=== PATIENT | female | born 1955 | race American Indian/Alaskan Native ===

== ENCOUNTER 2018-07-03 16:33 | Inpatient (IN) | payer MEDICARE ==
[2018-07-03 16:48] VITALS: BMI 48.4
[2018-07-03 17:53] LABS: BASO % 0.4 % (0.0-2.0); EOS # 0.4 K/uL (0.0-0.7); EOS % 5.1 % (0.0-4.0); HEMOGLOBIN 11.6 g/dL (11.0-16.0); LYMPH # 2.3 K/uL (1.0-4.3); MEAN CELL VOLUME 86.2 fL (81.0-99.0); MEAN CORPUSCULAR HEMOGLOBIN 27.2 pg (27.0-31.0); MEAN CORPUSCULAR HGB CONC 31.5 g/dL (33.0-37.0); MEAN PLATELET VOLUME 8.2 fL (7.2-11.7); MONO # 0.6 K/uL (0.0-0.8); MONO % 8.7 % (0.0-10.0); NEUT # 3.8 K/uL (1.8-7.0); NEUT % 53.8 % (50.0-75.0); NRBC % 0.1 % (0.0-2.0); RBC 4.26 Mil/uL (3.80-5.20); WHITE BLOOD COUNT 7.2 K/uL (4.8-10.8)
--- NOTE | 2018-07-03 18:02 | C.PDOC ---
History Of Present Illness 63 y/o female brought in by ambulance from home for evaluation of bilateral leg swelling and pain onset 2 days ago. She does admit to history of prior leg edema, though she is unsure of the cause. Otherwise patient denies any chest p ain, SOB, fever, chills, open wounds, or skin changes. She also denies any trauma or fall. Time Seen by Provider: 07/03/18 16:39 Chief Complaint (Nursing): Lower Extremity Problem/Injury History Per: Patient History/Exam Limitations: no limitations Onset/Duration Of Symptoms: Days (3) Current Symptoms Are (Timing): Still Present Past Medical History Reviewed: Historical Data, Nursing Documentation, Vital Signs Vital Signs: Last Vital Signs Temp 97.4 F L 07/03/18 16:48 Pulse 77 07/03/18 16:48 Resp 19 07/03/18 16:48 BP 121/76 07/03/18 16:48 Pulse Ox 97 07/03/18 16:48 - Medical History PMH: Diabetes (pre-diabetes), HTN, Hyperlipidemia, Hypothyroidism, Seizures Denies: Chronic Kidney Disease Other Surgeries: Right index finger surgery, Sarcoma removal - [facility] Procedures INJECT/INFUSE NEC (05/07/14) Family History: States: No Known Family Hx - Social History Hx Alcohol Use: No Hx Substance Use: No - Immunization History Hx Tetanus Toxoid Vaccination: No Hx Influenza Vaccination: No Hx Pneumococcal Vaccination: No Review Of Systems Constitutional: Negative for: Fever, Chills Cardiovascular: Negative for: Chest Pain Respiratory: Negative for: Shortness of Breath Musculoskeletal: Positive for: Leg Pain (and lower leg swelling, bilateral) Skin: Negative for: Lesions Neurological: Negative for: Weakness, Numbness Physical Exam - Physical Exam Appears: Non-toxic, No Acute Distress, Other (Morbidly obese) Skin: Warm, Dry, No Rash Head: Atraumatic, Normacephalic Eye(s): bilateral: Normal Inspection, PERRL, EOMI Neck: Normal ROM Chest: Symmetrical Cardiovascular: Rhythm Regular, No Murmur Respiratory: Normal Breath Sounds, No Accessory Muscle Use, Other (Speaking in full sentences) Gastrointestinal/Abdominal: Soft, No Tenderness, No Distention Extremity: Normal ROM, No Calf Tenderness, Capillary Refill (< 2 sec), Swelling (2+ pitting edema bilaterally), Other (No wounds or discharge) Pulses: Left Dorsalis Pedis: Normal, Right Dorsalis Pedis: Normal Neurological/Psych: Oriented x3, Normal Motor, Normal Sensation Gait: Steady ED Course And Treatment - Laboratory Results Result Diagrams: 07/03/18 17:49 07/03/18 18:55 O2 Sat by Pulse Oximetry: 97 (RA) Pulse Ox Interpretation: Normal - Radiology CXR: Read By Radiologist CXR Interpretation: Yes: No Acute Disease. No: Infiltrates, Cardiomegaly - Other Rad CXR X-Ray: Read By Radiologist Interpretation: Accession No. : [id number]. Patient Name / ID : JORGE HUMPHREY / [id number]. Exam Date : 07/03/2018 17:19:29 ( Approved ). Study Comment : Sex / Age : F / 63Y. Creator : Eliane Rollins MD. Dictator : Eliane Rollins MD. Keller Machine Operator : General Maintenance Helper : Eliane Rollins MD. Approver2 : Report Date : 07/03/2018 18:18:44. My Comment : . Date of service: 07/03/2018. PROCEDURE: CHEST RADIOGRAPH, 1 VIEW. HISTORY: SOB. COMPARISON: None available. FINDINGS: LUNGS: The lungs are well inflated and clear. PLEURA: No pneumothorax or pleural effusion. CARDIOVASCULAR: The heart is normal in size. No aortic atherosclerotic calcifications present. OSSEOUS STRUCTURES: Within normal limits for the patient's age. VISUALIZED UPPER ABDOMEN: Normal. OTHER FINDINGS: None. IMPRESSION: No active pulmonary disease. Progress Note: Blood work with cardiac enzymes ordered and reviewed. CXR obtained, shows no acute disease. Patient given PO Tylenol. Disposition - Disposition Forms: [employer] (Yakut) - Scribe Statement The provider has reviewed the documentation as recorded by the Huy Hughes Provider Attestation: All medical record entries made by the Scribe were at my direction and personally dictated by me. I have reviewed the chart and agree that the record accurately reflects my personal performance of the history, physical exam, medical decision making, and the department course for this patient. I have also personally directed, reviewed, and agree with the discharge instructions and disposition.
--- NOTE | 2018-07-03 18:22 | RAD ---
Date of service: 07/03/2018 PROCEDURE: CHEST RADIOGRAPH, 1 VIEW HISTORY: SOB COMPARISON: None available. FINDINGS: LUNGS: The lungs are well inflated and clear. PLEURA: No pneumothorax or pleural effusion. CARDIOVASCULAR: The heart is normal in size. No aortic atherosclerotic calcifications present. OSSEOUS STRUCTURES: Within normal limits for the patient's age. VISUALIZED UPPER ABDOMEN: Normal. OTHER FINDINGS: None. IMPRESSION: No active pulmonary disease.
[2018-07-03 19:20] LABS: ALB/GLOB RATIO 1.1 (1.0-2.1); ALBUMIN 3.7 g/dL (3.5-5.0); BLOOD UREA NITROGEN 18 mg/dL (7-17); CALCIUM 8.9 mg/dl (8.6-10.4); GFR NON-AFRICAN AMERICAN > 60
[2018-07-03 19:26] LABS: ALT/SGPT 15 U/L (9-52); AST/SGOT 23 U/L (14-36)
[2018-07-03 19:32] LABS: B-TYPE NATRIURETIC PEPTIDE 123 pg/mL (0-900); CK-MB 0.32 ng/mL (0.0-3.38)
--- NOTE | 2018-07-03 22:50 | CP.PCM.HP ---
Present on Admission - Present on Admission Any Indicators Present on Admission: No Past Patient History - Tetanus Immunizations Tetanus Immunization: Unknown - Past Social History Smoking Status: Never Smoked - CARDIAC Hx Hypertension: Yes - PULMONARY Hx Respiratory Disorders: No - NEUROLOGICAL Hx Seizures: Yes - HEENT Hx HEENT Problems: No - RENAL Hx Chronic Kidney Disease: No - ENDOCRINE/METABOLIC Hx Hypothyroidism: Yes - HEMATOLOGICAL/ONCOLOGICAL Hx Blood Disorders: No - INTEGUMENTARY Hx Dermatological Problems: No - MUSCULOSKELETAL/RHEUMATOLOGICAL Hx Musculoskeletal Disorders: No - GASTROINTESTINAL Hx Gastrointestinal Disorders: No - GENITOURINARY/GYNECOLOGICAL Hx Genitourinary Disorders: No - PSYCHIATRIC Hx Substance Use: No - SURGICAL HISTORY Hx Hysterectomy: Yes Hx Orthopedic Surgery: Yes (r index finger) Other/Comment: 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 R index finger sx as per pt/ - ANESTHESIA Hx Anesthesia: Yes Hx Anesthesia Reactions: No Hx Malignant Hyperthermia: No Meds Allergies/Adverse Reactions: Allergies Allergy/AdvReac Type Severity Reaction Status Date / Time No Known Allergies Allergy Verified 07/03/18 16:48 Results - Vital Signs Recent Vital Signs: Last Vital Signs Temp 97.9 F 07/03/18 22:10 Pulse 77 07/03/18 22:10 Resp 19 07/03/18 22:10 BP 109/53 L 07/03/18 22:10 Pulse Ox 99 07/03/18 22:10 - Labs Result Diagrams: 07/03/18 17:49 07/03/18 18:55 Labs: Laboratory Results - last 24 hr 07/03/18 07/03/18 17:49 18:55 WBC 7.2 RBC 4.26 Hgb 11.6 Hct 36.8 MCV 86.2 D MCH 27.2 MCHC 31.5 L RDW 15.0 H Plt Count 280 MPV 8.2 Neut % (Auto) 53.8 Lymph % (Auto) 32.0 Hendricks % (Auto) 8.7 Eos % (Auto) 5.1 H Baso % (Auto) 0.4 Neut # (Auto) 3.8 Lymph # (Auto) 2.3 Hendricks # (Auto) 0.6 Eos # (Auto) 0.4 Baso # (Auto) 0.0 Sodium 138 Potassium 4.2 Chloride 103 Carbon Dioxide 31 H Anion Gap 9 L BUN 18 H Creatinine 0.8 Est GFR ( Amer) > 60 Est GFR (Non-Af Amer) > 60 Random Glucose 92 Calcium 8.9 Total Bilirubin 0.5 AST 23 ALT 15 Alkaline Phosphatase 112 Total Creatine Kinase 48 CK-MB (Mass) 0.32 Troponin I < 0.0120 NT-Pro-B Natriuret Pep 123 Total Protein 7.1 Albumin 3.7 Globulin 3.4 Albumin/Globulin Ratio 1.1
--- NOTE | 2018-07-04 03:10 | HP ---
CHIEF COMPLAINT: Difficulty walking, leg swelling. HISTORY OF PRESENT ILLNESS: This is a 63-year-old female, well known to me with a history of morbid obesity, hypertension, hyperlipidemia and stroke. The patient has residual right-sided weakness, and she has been dependent on family members for activities of daily living. She has not been able to ambulate and she has been getting increasingly weak, inability to walk, generalized weakness, tingling and numbness. She denies any fevers, chills or rigors. She denies any nausea, vomiting or diarrhea. She denies any polyuria, polydipsia or polyphagia. She denies any history of hematuria or pyuria. She denies any sneezing, itchy eyes or itchy nose. There is no history of trauma, fall or loss of consciousness. There is no history of seizure-like activity. Her right side is weak . She had physiotherapy done on her previous hospitalization after the stroke, but no response. ALLERGIES: UNKNOWN ALLERGIES. CURRENT MEDICATIONS: Losartan, Lasix, Neurontin, aspirin, Mobic, Lipitor. PAST MEDICAL HISTORY: Hypertension, hyperlipidemia, stroke, arthritis. SOCIAL HISTORY: Nonsmoker, non-EtOH user. PHYSICAL EXAMINATION: GENERAL: An elderly female in no acute distress. VITAL SIGNS: Blood pressure 109/53, pulse 77, respiratory rate 20, temperature 97.9. SKIN: Senile turgor. No bruises. No purpura. No petechiae. No ecchymosis. HEENT: Atraumatic and normocephalic. Negative pallor. Negative jaundice. Extraocular movements are intact. NECK: Supple. No JVD. No lymph node. No thyromegaly. No carotid bruits. CHEST WALL: Bilateral symmetrical expansion. No . LUNGS: Clear. No rales. No rhonchi. CARDIOVASCULAR SYSTEM: S1 and S2, regular. No heave. No thrill. ABDOMEN: Soft and nontender. Bowel sounds are positive. RECTAL: No masses. No bleed. EXTREMITIES: No clubbing or cyanosis. +2 pitting edema. CENTRAL NERVOUS SYSTEM: Awake, alert, oriented x3. ASSESSMENT: 1. An old cerebrovascular accident with residual right-sided weakness with inability to thrive. 2. Hypertensive heart disease. 3. Osteoarthritis. 4. Hyperlipidemia. PLAN: Admit. Detailed orders are written. Seen and examined. Darwin Levine MD
--- NOTE | 2018-07-04 15:56 | CON ---
DATE: 07/04/2018 NEUROLOGY CONSULTATION CHIEF COMPLAINT: Generalized weakness. HISTORY OF PRESENT ILLNESS: This is a 63-year-old woman with a past medical history of morbid obesity, hypertension, hyperlipidemia, history of CVA with right-sided weakness, has been dependent on family members for activities of daily living. She has generalized weakness and lower extremity swelling, has some paresthesias. She is on gabapentin. She is very deconditioned for which she will require subacute rehab. Otherwise, she follows simple commands, recall after 5 minutes is 1/2, poor attention span, slow thought process. CURRENT MEDICATIONS: Losartan, Lasix, Neurontin, aspirin, Mobic, Lipitor. PAST MEDICAL HISTORY: Hypertension, hyperlipidemia, stroke, arthritis. SOCIAL HISTORY: No illicit drug abuse, smoking, or ETOH abuse. ALLERGIES: NO KNOWN DRUG ALLERGIES. REVIEW OF SYSTEMS: A 14-point review of systems negative except in the HPI. LABORATORY DATA: Sodium is 138, potassium 4.2, chloride 102, carbon dioxide 31, BUN of 18, creatinine 0.8, random glucose 92. PHYSICAL EXAMINATION: GENERAL: The patient is sitting up in no acute distress. VITAL SIGNS: Temperature 98.2, pulse rate of 67, blood pressure 107/71, respiratory rate 18, oxygen saturation 97% on room air. HEENT: Head is atraumatic, normocephalic. PERRLA. Extraocular movements intact. NECK: Supple. No JVD. No adenopathy noted. ABDOMEN: Obese, nontender, nondistended. Bowel sounds present. EXTREMITIES: No clubbing. Has 2+ pitting edema. Peripheral pulses are 2+ bilaterally. NEUROLOGIC: The patient is alert and oriented to person, place, and year. Recall after 5 minutes is 1/3. Poor attention span. Thought process clear. Cranial nerves II throughout XII intact. Motor examination has revealed right CVA and is very deconditioned. Sensory exam, decreased light touch to pinprick up to the calves bilaterally, decreased vibration of the toes. DTRs are 2+ throughout, 1 at both knees and ankles. Coordination: [id number] intact. Gait deferred for now. IMPRESSION: Generalized weakness, secondary to deconditioning , old cerebrovascular accident with severe right sided weakness with underlying failure to thrive, also has underlying osteoarthritis. At this time, recommend: 1. Aspirin 81 mg, Crestor 20 mg for stroke prevention. 2. Acute systolic blood pressure between 120s and 130s systolic and diastolics in the 80s. 3. Continue gabapentin 300 mg p.o. b.i.d. for neuropathic release. 4. Recommend subacute rehab for physical therapy, muscle strengthening, coordination, and balance exercises in a deconditioned state. Thank you for this consult. French Chavez MD
--- NOTE | 2018-07-04 20:58 | CP.PCM.PN ---
Subjective - Date & Time of Evaluation Date of Evaluation: 07/04/18 Time of Evaluation: 09:40 - Subjective Subjective: dictated Objective - Vital Signs/Intake and Output Vital Signs (last 24 hours): Temp Pulse Resp BP Pulse Ox 98.1 F 70 20 110/69 100 07/04/18 15:35 07/04/18 15:35 07/04/18 15:35 07/04/18 15:35 07/04/18 15:35 - Medications Medications: Current Medications Aspirin (Aspirin Chewable) 81 mg PO DAILY [facility] Furosemide (Lasix) 40 mg IVP Q12 [facility] Last Admin: 07/04/18 13:30 Dose: Not Given Gabapentin (Neurontin) 300 mg PO TID [facility] Last Admin: 07/04/18 17:31 Dose: 300 mg Heparin Sodium (Porcine) (Heparin) 5,000 units SC Q12 [facility] Last Admin: 07/04/18 10:04 Dose: 5,000 units Home Med (Meloxicam [Mobic]) 7.5 mg PO BID [facility] Losartan Potassium (Cozaar) 50 mg PO DAILY [facility] Last Admin: 07/04/18 10:04 Dose: 50 mg Potassium Chloride (K-Dur 20 Meq Er Tab) 20 meq PO DAILY [facility] Stop: 07/08/18 10:01 Rosuvastatin Calcium (Crestor) 20 mg PO HS [facility] Last Admin: 07/03/18 22:10 Dose: 20 mg - Labs Labs: 07/03/18 17:49 07/03/18 18:55
--- NOTE | 2018-07-05 00:41 | PN ---
DATE: 07/04/2018 SUBJECTIVE: The patient is with left-sided weakness. She is on physiotherapy and she is for subacute rehab and detention placement. No fevers. No chills. Decreased leg edema. PHYSICAL EXAMINATION: VITAL SIGNS: Blood pressure 110/69, pulse 70, respiratory rate 20, and temperature 98.1. LUNGS: Clear. CVS: S1 and S2, regular, S4 positive. ABDOMEN: Soft. ASSESSMENT: 1. History of prior cardiovascular accident with difficulty walking with left-sided weakness. 2. Hypertension. 3. Hypertensive heart disease. 4. Hyperlipidemia. PLAN: Physical therapy, rehab. Monitor the patient. Darwin Levine MD
[2018-07-05] MEDS ORDERED: Potassium Chloride 20 mEq ER Tab PO SCH (10:00)
--- NOTE | 2018-07-05 22:46 | CP.PCM.PN ---
Subjective - Date & Time of Evaluation Date of Evaluation: 07/05/18 Time of Evaluation: 20:40 - Subjective Subjective: dictated Objective - Vital Signs/Intake and Output Vital Signs (last 24 hours): Temp Pulse Resp BP Pulse Ox 98.2 F 64 20 98/54 L 98 07/05/18 15:49 07/05/18 15:49 07/05/18 15:49 07/05/18 15:49 07/05/18 15:49 Intake and Output: 07/05/18 07/06/18 18:59 06:59 Intake Total 320 Output Total 1100 Balance -780 - Medications Medications: Current Medications Aspirin (Aspirin Chewable) 81 mg PO DAILY [facility] Last Admin: 07/05/18 10:30 Dose: 81 mg Celecoxib (Celebrex) 200 mg PO DAILY [facility] Last Admin: 07/05/18 17:49 Dose: 200 mg Gabapentin (Neurontin) 300 mg PO TID [facility] Last Admin: 07/05/18 17:49 Dose: 300 mg Heparin Sodium (Porcine) (Heparin) 5,000 units SC Q12 [facility] Last Admin: 07/05/18 21:15 Dose: 5,000 units Losartan Potassium (Cozaar) 50 mg PO DAILY [facility] Last Admin: 07/05/18 10:29 Dose: 50 mg Rosuvastatin Calcium (Crestor) 20 mg PO HS [facility] Last Admin: 07/05/18 21:16 Dose: 20 mg - Labs Labs: 07/03/18 17:49 07/03/18 18:55
--- NOTE | 2018-07-06 02:28 | PN ---
DATE: 07/05/2018 SUBJECTIVE: The patient is feeling better. She still has left sided weakness. She is on physical therapy and she is for subacute rehab. She is afebrile. No shortness of breath. No nausea or vomiting. No chest pain. The patient is calm and quiet. PHYSICAL EXAMINATION: VITAL SIGNS: Blood pressure 98/51, pulse 64, respiratory rate 20, and temperature 98.2. LUNGS: Clear. CARDIOVASCULAR: S1 and S2, regular. ABDOMEN: Soft. ASSESSMENT: 1. Cerebrovascular accident with left-sided weakness. 2. Hypertension. 3. Hyperlipidemia. PLAN: Physical therapy. Rehab. Long-term assisted placement. Darwin Levine MD
[2018-07-06 08:22] LABS: HEMOGLOBIN 11.2 g/dL (11.0-16.0); MEAN CELL VOLUME 87.5 fL (81.0-99.0); MEAN CORPUSCULAR HEMOGLOBIN 28.5 pg (27.0-31.0); MEAN CORPUSCULAR HGB CONC 32.6 g/dL (33.0-37.0); MEAN PLATELET VOLUME 8.4 fL (7.2-11.7); RBC 3.94 Mil/uL (3.80-5.20); RED CELL DISTRIBUTION WIDTH 14.5 % (11.5-14.5); WHITE BLOOD COUNT 6.6 K/uL (4.8-10.8)
[2018-07-06 08:33] LABS: BLOOD UREA NITROGEN 23 mg/dL (7-17); CALCIUM 7.5 mg/dl (8.6-10.4); GFR NON-AFRICAN AMERICAN > 60
--- NOTE | 2018-07-06 09:54 | VASCLAB ---
Date of service: 07/04/2018 PROCEDURE: Lower Extremity Venous Duplex Exam. HISTORY: B/L leg edema and pain, r/o DVT PRIORS: None. TECHNIQUE: Bilateral common femoral, femoral, popliteal and posterior tibial, peroneal and great saphenous veins were evaluated. Flow was assessed with color Doppler, compressibility, assessment of phasic flow and augmentation response. Report prepared by Christian Blake, BS, RVT FINDINGS: RIGHT: 1. Common Femoral Vein: 1.1. Compressibility - Fully compressible: Thrombus - None : Flow - Phasic: Augmentation -Normal: Reflux - None. 2. Femoral Vein: 2.1. Compressibility - Fully compressible: Thrombus - None : Flow - Phasic: Augmentation -Normal: Reflux - None. 3. Popliteal Vein: 3.1. Compressibility - Fully compressible: Thrombus - None : Flow - Phasic: Augmentation -Normal: Reflux - None. 4. Posterior Tibial Vein: 4.1. Compressibility - Fully compressible: Thrombus - None: Flow - Phasic: Augmentation -Normal: Reflux - None. 5. Peroneal Vein: 5.1. Compressibility - Fully compressible: Thrombus - None: Flow - Phasic: Augmentation -Normal: Reflux - None. 6. Great Saphenous Vein: 6.1. Compressibility - Fully compressible: Thrombus - None: Flow - Phasic: Augmentation - Normal: Reflux - None. LEFT: 1. Common Femoral Vein: 1.1. Compressibility - Fully compressible: Thrombus - None: Flow - Phasic: Augmentation -Normal: Reflux - None. 2. Femoral Vein: 2.1. Compressibility - Fully compressible: Thrombus - None: Flow - Phasic: Augmentation -Normal: Reflux - None. 3. Popliteal Vein: 3.1. Compressibility - Fully compressible: Thrombus - None : Flow - Phasic: Augmentation -Normal: Reflux - None. 4. Posterior Tibial Vein: 4.1. Compressibility - Fully compressible: Thrombus - None: Flow - Phasic: Augmentation -Normal: Reflux - None. 5. Peroneal Vein: 5.1. Compressibility - Fully compressible: Thrombus - None: Flow - Phasic: Augmentation -Normal: Reflux - None. 6. Great Saphenous Vein: 6.1. Compressibility - Fully compressible: Thrombus - None: Flow - Phasic: Augmentation - Normal: Reflux - None. OTHER FINDINGS: Right: None significant. Left: None significant. IMPRESSION: Right: No evidence of deep or superficial vein thrombosis of the right lower extremity. Normal valve function noted of the right side. Left: No evidence of deep or superficial vein thrombosis of the left lower extremity. Normal valve function noted of the left side.
--- NOTE | 2018-07-06 20:50 | CP.PCM.PN ---
Subjective - Date & Time of Evaluation Date of Evaluation: 07/06/18 Time of Evaluation: 08:00 - Subjective Subjective: dictated Objective - Vital Signs/Intake and Output Vital Signs (last 24 hours): Temp Pulse Resp BP Pulse Ox 97.6 F 77 18 134/68 97 07/06/18 15:34 07/06/18 15:34 07/06/18 15:34 07/06/18 15:34 07/06/18 15:34 Intake and Output: 07/06/18 07/07/18 18:59 06:59 Intake Total 480 Output Total 400 Balance 80 - Medications Medications: Current Medications Aspirin (Aspirin Chewable) 81 mg PO DAILY [facility] Last Admin: 07/06/18 10:48 Dose: 81 mg Celecoxib (Celebrex) 200 mg PO DAILY [facility] Last Admin: 07/06/18 10:49 Dose: 200 mg Gabapentin (Neurontin) 300 mg PO TID [facility] Last Admin: 07/06/18 17:16 Dose: 300 mg Heparin Sodium (Porcine) (Heparin) 5,000 units SC Q12 [facility] Last Admin: 07/06/18 10:49 Dose: 5,000 units Losartan Potassium (Cozaar) 25 mg PO DAILY [facility] Last Admin: 07/06/18 10:49 Dose: 25 mg Rosuvastatin Calcium (Crestor) 20 mg PO HS [facility] Last Admin: 07/05/18 21:16 Dose: 20 mg - Labs Labs: 07/06/18 08:03 07/06/18 08:03
--- NOTE | 2018-07-07 01:11 | PN ---
DATE: 07/06/2018 SUBJECTIVE: The patient is feeling better. She is for subacute rehab. No fever. No chills. PHYSICAL EXAMINATION: VITAL SIGNS: Blood pressure 134/68, pulse 77, respiratory rate 18, temperature 97.6. LUNGS: Clear. CARDIOVASCULAR SYSTEM: S1 and S2 regular. ABDOMEN: Soft. ASSESSMENT: 1. Hypertensive heart disease. 2. Cerebrovascular accident with left-sided weakness. 3. Hyperlipidemia. PLAN: Physical therapy, rehab. Monitor the patient. Darwin Levine MD
--- NOTE | 2018-07-07 21:34 | CP.PCM.PN ---
Subjective - Date & Time of Evaluation Date of Evaluation: 07/07/18 Time of Evaluation: 08:20 - Subjective Subjective: dictated Objective - Vital Signs/Intake and Output Vital Signs (last 24 hours): Temp Pulse Resp BP Pulse Ox 97.8 F 70 20 106/65 99 07/07/18 15:15 07/07/18 15:15 07/07/18 15:15 07/07/18 15:15 07/07/18 15:15 - Medications Medications: Current Medications Aspirin (Aspirin Chewable) 81 mg PO DAILY [facility] Last Admin: 07/07/18 10:29 Dose: 81 mg Celecoxib (Celebrex) 200 mg PO DAILY [facility] Last Admin: 07/07/18 10:29 Dose: 200 mg Gabapentin (Neurontin) 300 mg PO TID [facility] Last Admin: 07/07/18 17:51 Dose: 300 mg Losartan Potassium (Cozaar) 25 mg PO DAILY [facility] Last Admin: 07/07/18 10:29 Dose: 25 mg Rosuvastatin Calcium (Crestor) 20 mg PO HS [facility] Last Admin: 07/06/18 21:44 Dose: 20 mg - Labs Labs: 07/06/18 08:03 07/06/18 08:03
--- NOTE | 2018-07-08 00:46 | PN ---
DATE: 07/07/2018 SUBJECTIVE: No changes. The patient is feeling well. Afebrile. No shortness of breath. No nausea or vomiting. PHYSICAL EXAMINATION: VITAL SIGNS: Blood pressure 106/65, pulse 70, respiratory rate 20, temperature 97.8. LUNGS: Clear. CARDIOVASCULAR: S1 and S2, regular. ABDOMEN: Soft. ASSESSMENT: 1. Cerebrovascular accident, old. 2. Hypertension. PLAN: Physical therapy. Rehab placement. Darwin Levine MD
--- NOTE | 2018-07-08 22:54 | CP.PCM.PN ---
Subjective - Date & Time of Evaluation Date of Evaluation: 07/08/18 Time of Evaluation: 08:30 - Subjective Subjective: dcitated Objective - Vital Signs/Intake and Output Vital Signs (last 24 hours): Temp Pulse Resp BP Pulse Ox 98 F 66 20 107/66 99 07/08/18 15:35 07/08/18 15:35 07/08/18 15:35 07/08/18 15:35 07/08/18 15:35 Intake and Output: 07/08/18 07/09/18 18:59 06:59 Output Total 800 Balance -800 - Medications Medications: Current Medications Aspirin (Aspirin Chewable) 81 mg PO DAILY [facility] Last Admin: 07/08/18 10:47 Dose: 81 mg Celecoxib (Celebrex) 200 mg PO DAILY [facility] Last Admin: 07/08/18 10:47 Dose: 200 mg Gabapentin (Neurontin) 300 mg PO TID [facility] Last Admin: 07/08/18 19:00 Dose: 300 mg Losartan Potassium (Cozaar) 25 mg PO DAILY [facility] Last Admin: 07/08/18 10:47 Dose: 25 mg Rosuvastatin Calcium (Crestor) 20 mg PO [facility] Last Admin: 07/08/18 21:00 Dose: 20 mg - Labs Labs: 07/06/18 08:03 07/06/18 08:03
--- NOTE | 2018-07-09 03:28 | PN ---
DATE: 07/08/2018 SUBJECTIVE: The patient is waiting for placement. No fever, no chills. PHYSICAL EXAMINATION: VITAL SIGNS: Blood pressure 107/66, pulse 66, respiratory rate 20, temperature 98. LUNGS: Clear. ABDOMEN: Soft. CENTRAL NERVOUS SYSTEM: Left-sided weakness. ASSESSMENT: 1. Cerebrovascular accident, old. 2. Hypotension. 3. Difficulty walking. PLAN: Physical therapy, LTAC placement, and rehab placement. Darwin Levine MD
--- NOTE | 2018-07-09 15:56 | CP.PCM.PN ---
Subjective - Date & Time of Evaluation Date of Evaluation: 07/09/18 Time of Evaluation: 15:55 Objective - Vital Signs/Intake and Output Vital Signs (last 24 hours): Temp Pulse Resp BP Pulse Ox 97.9 F 62 20 107/66 96 07/09/18 07:00 07/09/18 07:00 07/09/18 07:00 07/09/18 07:00 07/09/18 07:00 Intake and Output: 07/09/18 07/09/18 06:59 18:59 Intake Total 400 Output Total 800 500 Balance -800 -100 - Medications Medications: Current Medications Aspirin (Aspirin Chewable) 81 mg PO DAILY [facility] Last Admin: 07/09/18 09:15 Dose: 81 mg Celecoxib (Celebrex) 200 mg PO DAILY [facility] Last Admin: 07/09/18 09:15 Dose: 200 mg Gabapentin (Neurontin) 300 mg PO TID [facility] Last Admin: 07/09/18 14:04 Dose: 300 mg Losartan Potassium (Cozaar) 25 mg PO DAILY [facility] Last Admin: 07/09/18 09:15 Dose: 25 mg Rosuvastatin Calcium (Crestor) 20 mg PO HS [facility] Last Admin: 07/08/18 21:00 Dose: 20 mg - Labs Labs: 07/06/18 08:03 07/06/18 08:03 Assessment and Plan - Assessment and Plan (Free Text) Assessment: PLACE UNDER THE SERVICE OF DR COX AT [facility] CONTINUE HOME MEDICATION PER MED REC ACTIVITY TOLERATED AND FACILITY PROTOCOL CALL DR COX FOR FURTHER ORDER
[2018-07-09 16:37] VITALS: BP 109/73; PULSE 67; RESP 18; TEMP 98.1; O2SAT 97
--- NOTE | 2018-07-10 02:55 | CP.PCM.DIS ---
Provider - Provider Date of Admission: 07/03/18 19:44 Attending physician: Darwin Levine MD Consults: 07/03/18 21:32 Neurology Consult Routine Comment: Consulting Provider: Chay Chavez Consulting Physician: Chay Chavez Reason for Consult: stroke 07/04/18 02:26 Nursing Referral for Wound Care Routine Comment: Physician Instructions: Reason For Exam: Left thigh open sore 07/04/18 14:18 Case Management Referral Routine Comment: Physician Instructions: Reason For Exam: [facility] [place] Reason for Referral: Discharge Planning Time Spent in preparation of Discharge (in minutes): 30 Hospital Course - Lab Results Lab Results: Most Recent Lab Values WBC 6.6 K/uL (4.8-10.8) 07/06/18 08:03 RBC 3.94 Mil/uL (3.80-5.20) 07/06/18 08:03 Hgb 11.2 g/dL (11.0-16.0) 07/06/18 08:03 Hct 34.4 % (34.0-47.0) 07/06/18 08:03 MCV 87.5 fL (81.0-99.0) 07/06/18 08:03 MCH 28.5 pg (27.0-31.0) 07/06/18 08:03 MCHC 32.6 g/dL (33.0-37.0) L 07/06/18 08:03 RDW 14.5 % (11.5-14.5) 07/06/18 08:03 Plt Count 263 K/uL (130-400) 07/06/18 08:03 MPV 8.4 fL (7.2-11.7) 07/06/18 08:03 Neut % (Auto) 53.8 % (50.0-75.0) 07/03/18 17:49 Lymph % (Auto) 32.0 % (20.0-40.0) 07/03/18 17:49 Pike % (Auto) 8.7 % (0.0-10.0) 07/03/18 17:49 Eos % (Auto) 5.1 % (0.0-4.0) H 07/03/18 17:49 Baso % (Auto) 0.4 % (0.0-2.0) 07/03/18 17:49 Neut # (Auto) 3.8 K/uL (1.8-7.0) 07/03/18 17:49 Lymph # (Auto) 2.3 K/uL (1.0-4.3) 07/03/18 17:49 Pike # (Auto) 0.6 K/uL (0.0-0.8) 07/03/18 17:49 Eos # (Auto) 0.4 K/uL (0.0-0.7) 07/03/18 17:49 Baso # (Auto) 0.0 K/uL (0.0-0.2) 07/03/18 17:49 Sodium 136 mmol/L (132-148) 07/06/18 08:03 Potassium 4.4 mmol/L (3.6-5.2) 07/06/18 08:03 Chloride 98 mmol/L (98-107) 07/06/18 08:03 Carbon Dioxide 33 mmol/L (22-30) H 07/06/18 08:03 Anion Gap 9 (10-20) L 07/06/18 08:03 BUN 23 mg/dL (7-17) H 07/06/18 08:03 Creatinine 0.9 mg/dL (0.7-1.2) 07/06/18 08:03 Est GFR ( Amer) > 60 07/06/18 08:03 Est GFR (Non-Af Amer) > 60 07/06/18 08:03 Random Glucose 86 mg/dL (65-105) 07/06/18 08:03 Calcium 7.5 mg/dl (8.6-10.4) L 07/06/18 08:03 Total Bilirubin 0.5 mg/dL (0.2-1.3) 07/03/18 18:55 AST 23 U/L (14-36) 07/03/18 18:55 ALT 15 U/L (9-52) 07/03/18 18:55 Alkaline Phosphatase 112 U/L (38-126) 07/03/18 18:55 Total Creatine Kinase 48 U/L (30-135) 07/03/18 18:55 CK-MB (Mass) 0.32 ng/mL (0.0-3.38) 07/03/18 18:55 Troponin I < 0.0120 ng/mL (0.00-0.120) 07/03/18 18:55 NT-Pro-B Natriuret Pep 123 pg/mL (0-900) 07/03/18 18:55 Total Protein 7.1 g/dL (6.3-8.3) 07/03/18 18:55 Albumin 3.7 g/dL (3.5-5.0) 07/03/18 18:55 Globulin 3.4 gm/dL (2.2-3.9) 07/03/18 18:55 Albumin/Globulin Ratio 1.1 (1.0-2.1) 07/03/18 18:55 Discharge Plan - Follow Up Plan Condition: GOOD Disposition: REHAB FACILITY/REHAB UNIT Instructions: Heart Healthy Diet, Generalized Weakness (DC), Failure to Thrive, Adult (DC) Additional Instructions: PLACE UNDER THE SERVICE OF DR LEVINE AT [facility] CONTINUE HOME MEDICATION PER MED REC ACTIVITY TOLERATED AND FACILITY PROTOCOL CALL DR LEVINE FOR FURTHER ORDER Referrals: French Chavez MD [Staff Provider] - Darwin Levine MD [Staff Provider] -
== END 2018-07-09 18:05 | DRG 57 ==
LOC: C.ER 16:33 → C.9E 19:44 → C.6T 21:59
PROVIDERS: ADMIT Internal Medicine; ATTEND Internal Medicine
DX: I69.351 Hemiplegia and hemiparesis following cerebral infarction affecting right dominant side (principal); R62.7 Adult failure to thrive; I69.398 Other sequelae of cerebral infarction; R73.03 Prediabetes; I11.9 Hypertensive heart disease without heart failure; R26.2 Difficulty in walking, not elsewhere classified; M19.90 Unspecified osteoarthritis, unspecified site; E03.9 Hypothyroidism, unspecified; E78.5 Hyperlipidemia, unspecified; E66.01 Morbid (severe) obesity due to excess calories; Z68.42 Body mass index [BMI] 45.0-49.9, adult; Z90.710 Acquired absence of both cervix and uterus